=== PATIENT | male | born 1970 | race Two or more races ===

== ENCOUNTER 2019-08-15 09:33 | Emergency (ER) | payer OTHER ==
[~2019-08-15] VITALS: Ht 172.7 cm; Wt 120.2 kg
[2019-08-15] MEDS ORDERED: FORTAMET500 MG (10:05)
[2019-08-15] MEDS ORDERED: LOSARTAN-HCTZ1 EAC2 (10:05)
== END 2019-08-15 17:43 | disposition home or self-care (01) ==
LOC: ER 09:33 → EDSEX 09:45 → ER 09:45
DX: K57.90 Diverticulosis of intestine, part unspecified, without perforation or abscess without bleeding (principal); K80.20 Calculus of gallbladder without cholecystitis without obstruction; R10.84 Generalized abdominal pain

== ENCOUNTER 2023-07-03 04:25 | Emergency (ER) | payer OTHER ==
[~2023-07-03] VITALS: Ht 172.7 cm; Wt 104.3 kg
[~2023-07-03 04:25] MED LIST: FORTAMET500 MG; LOSARTAN-HCTZ1 EAC2
[2023-07-03] MEDS ORDERED: JANUMET 50-5001 EACH (04:41)
[2023-07-03] MEDS ORDERED: PROVENTIL HFA6.7 GM IH (09:54)
[2023-07-03] MEDS ORDERED: FLOVENT HFA12 GM IH (09:54)
== END 2023-07-03 10:28 | disposition home or self-care (01) ==
LOC: ER 04:25
PROVIDERS: General Practice
DX: J40 Bronchitis, not specified as acute or chronic (principal); Z20.822 Contact with and (suspected) exposure to COVID-19

== ENCOUNTER 2025-07-03 20:37 | Inpatient (IN) | payer OTHER ==
[~2025-07-03] VITALS: Ht 172.7 cm; Wt 104.3 kg
[~2025-07-03 20:37] MED LIST changes: +FLOVENT HFA12 GM IH; +JANUMET 50-5001 EACH; +PROVENTIL HFA6.7 GM IH
[2025-07-03] MEDS ORDERED: FAMOTIDINE/PF 20 MG/2 ML VIAL ONE (21:12)
[2025-07-03] MEDS ORDERED: ONDANSETRON HCL 2 MG/ML VIAL ONE (21:12)
[2025-07-03] MEDS ORDERED: ONDANSETRON HCL 2 MG/ML VIAL IV ONE (21:15)
[2025-07-03] MEDS ORDERED: FAMOtidine 10 MG/ML (4ML VIAL) IV ONE (21:15)
[2025-07-03] MEDS ORDERED: 0.9 % SODIUM CHLORIDE 1,000 ML IV ONE (21:15)
[2025-07-03] MEDS ORDERED: MORPHINE SULFATE 4 MG/ML VIAL IV ONE ×2 (21:15→23:30)
[2025-07-03 21:18] LABS: BASO % 0.4 % (0.1-1.2); EOS # 0.09 (0.04-0.54); EOS % 0.7 % (0.7-7.0); LYMPH # 1.96 (1.18-3.74); LYMPH % 14.6 % (19.3-53.1); MEAN PLATELET VOLUME 10.40 fl (9.4-12.4); MONO # 0.69 (0.24-0.82); MONO % 5.1 % (4.7-12.5); NEUT # 10.56 (1.56-6.13); NEUT % 78.7 % (34.0-71.1); RED CELL DISTRIBUTION WIDTH 11.8 % (11.6-14.4)
[2025-07-03 21:43] LABS: INR 1.08
[2025-07-03 21:49] LABS: ALT/SGPT 61.0 U/L (12-78); AST/SGOT 25.0 U/L (15-37); BILIRUBIN TOTAL 0.57 mg/dL (0.3-1.2); BUN CREA RATIO 22.0 (7.0-25.0); CREATININE SERUM 0.89 mg/dL (0.70-1.30); GFR 89.41; GLOBULINA 2.9 G/DL (2.4-3.5); OSMOLALITY SERUM 285.0 MOSM/KG (275-295)
[2025-07-03 21:51] LABS: GLUCOSE FASTING 258.0 mg/dL (65-100)
[2025-07-03] MEDS ORDERED: PROMETHAZINE HCL 50 MG/ML AMPUL IM ONE ×2 (23:30→23:35)
[2025-07-04] MEDS ORDERED: PIPERACILLIN/TAZOBACTAM SODIUM 3.375 GM VIAL IV ONE ×3 (00:30→21:14)
[2025-07-04 02:47] LABS: URINE APPEARANCE Clear; URINE BILIRRUBIN Negative (NEGATIVE); URINE BLOOD Negative; URINE COLOR Yellow; URINE KETONE 15 (NEGATIVE); URINE LEUKOCYTE Negative; URINE NITRATE Negative; URINE PROTEIN Negative (NEGATIVE); URINE UROBILINOGEN 0.2 E.U./dl
[2025-07-04 02:50] LABS: URINE EPITHELIAL CELLS 22.1 uL (0.0-38.8); URINE RBC 10.1 uL (0.0-20.8); URINE WBC 11.3 uL (0.0-23.2)
[2025-07-04] MEDS ORDERED: LIDOCAINE HCL VISCOUS 20MG/ML BLIST 15ML MM ONE (03:20)
[2025-07-04 03:27] LABS: URINE BACTERIA 1.1 uL (0.0-1933); URINE CAST 0.16 uL (0.0-1.40); URINE GLUCOSE 500 MG/DL (NEGATIVE); URINE MUCUS SCANT
[2025-07-04] MEDS ORDERED: ONDANSETRON HCL 2 MG/ML VIAL IV STA (04:31)
[2025-07-04] MEDS ORDERED: MORPHINE SULFATE 4 MG/ML VIAL IV STA (04:32)
[2025-07-04] MEDS ORDERED: ONDANSETRON HCL 2 MG/ML VIAL ONE (04:39)
[2025-07-04] MEDS ORDERED: MORPHINE SULFATE 2 MG/ML CARTRIDGE IV ONE (10:30)
[2025-07-04] MEDS ORDERED: ONDANSETRON HCL 8 MG in 0.9 % SODIUM CHLORIDE 50 ML IV STA (13:48)
[2025-07-04] MEDS ORDERED: ENALAPRILAT DIHYDRATE 1.25 MG/ML VIAL IV PRN (15:15)
[2025-07-04] MEDS ORDERED: 0.9 % SODIUM CHLORIDE 1,000 ML IV SCH (15:15)
[2025-07-04] MEDS ORDERED: DEXTROSE 50 % IN WATER 0.5 G/ML DISP.SYRIN IV PRN (15:45)
[2025-07-04] MEDS ORDERED: INSULIN LISPRO 1,000 UNIT/10 ML UNITS SUBCUTANEO PRN ×2 (15:45→18:15)
[2025-07-04] MEDS ORDERED: CEFAZOLIN SODIUM 2,000 MG in 0.9 % SODIUM CHLORIDE 100 ML IV ONE (17:30)
[2025-07-04] MEDS ORDERED: BUPIVACAINE HCL 30 ML VIAL IJ ONE (17:45)
[2025-07-04] MEDS ORDERED: PIPERACILLIN/TAZOBACTAM SODIUM 3.375 GM in DEXTROSE 5 % IN WATER 100 ML IV SCH (18:00)
[2025-07-04] MEDS ORDERED: DEXTROSE 50 % IN WATER 0.5 G/ML VIAL IV PRN (18:15)
[2025-07-04] MEDS ORDERED: SUGAMMADEX SODIUM 200 MG/2 ML VIAL IV ONE (18:30)
[2025-07-04] MEDS ORDERED: KETOROLAC TROMETHAMINE 30 MG VIAL IV SCH (19:22)
[2025-07-04] MEDS ORDERED: MORPHINE SULFATE 4 MG/ML CARTRIDGE IV PRN (19:30)
[2025-07-04] MEDS ORDERED: INSULIN GLARGINE,HUM.REC.ANLOG 1,000 UNITS/10 ML UNITS SUBCUTANEO SCH (21:00)
[2025-07-04] MEDS ORDERED: KETOROLAC TROMETHAMINE 30 MG VIAL ONE (21:16)
[2025-07-04 22:00] VITALS: BP 118/68; O2SAT 95
[2025-07-05 01:27] VITALS: BP 124/73; O2SAT 96
[2025-07-05 08:08] LABS: BASO % 0.7 % (0.1-1.2); EOS # 0.03 (0.04-0.54); EOS % 0.5 % (0.7-7.0); LYMPH # 0.73 (1.18-3.74); LYMPH % 12.5 % (19.3-53.1); MEAN PLATELET VOLUME 10.80 fl (9.4-12.4); MONO # 0.70 (0.24-0.82); MONO % 12.0 % (4.7-12.5); NEUT # 4.30 (1.56-6.13); NEUT % 74.0 % (34.0-71.1); RED CELL DISTRIBUTION WIDTH 12.1 % (11.6-14.4)
[2025-07-05 08:20] VITALS: BP 120/61; O2SAT 96
[2025-07-05 08:27] LABS: BUN CREA RATIO 23.0 (7.0-25.0); CREATININE SERUM 0.65 mg/dL (0.70-1.30); GFR 128.5; GLUCOSE FASTING 176.0 mg/dL (65-100); OSMOLALITY SERUM 290.0 MOSM/KG (275-295)
[2025-07-05] MEDS ORDERED: FAMOTIDINE/PF 20 MG/2 ML VIAL IV SCH (09:00)
[2025-07-05 16:00] VITALS: BP 122/76; O2SAT 95
[2025-07-06 00:19] VITALS: BP 105/54; O2SAT 94
[2025-07-06 08:47] VITALS: BP 117/75; O2SAT 95
[2025-07-06 16:00] VITALS: BP 120/72; O2SAT 96
[2025-07-07 07:00] LABS: BUN CREA RATIO 24.0 (7.0-25.0); CREATININE SERUM 0.51 mg/dL (0.70-1.30); GFR 170.01; GLUCOSE FASTING 124.0 mg/dL (65-100); OSMOLALITY SERUM 286.0 MOSM/KG (275-295)
[2025-07-07 08:38] VITALS: BP 110/69; O2SAT 95
== END 2025-07-07 13:48 | disposition home or self-care (01) | DRG 355 ==
LOC: ER 20:37 → SURH 07-04 15:36 → SEC-K 07-04 15:36 → SURH 07-04 19:45
PROVIDERS: General Practice; Student in an Organized Health Care Education/Training Program; ADMIT Student in an Organized Health Care Education/Training Program; ATTEND Student in an Organized Health Care Education/Training Program
PROC: BW21YZZ Computerized Tomography (CT Scan) of Abdomen and Pelvis using Other Contrast (ICD-10-PCS; 2025-07-03)
PROC: 0WQF4ZZ Repair Abdominal Wall, Percutaneous Endoscopic Approach (ICD-10-PCS; principal; 2025-07-04 17:45)
DX: K43.0 Incisional hernia with obstruction, without gangrene (principal); K42.0 Umbilical hernia with obstruction, without gangrene

== ENCOUNTER 2025-07-08 19:58 | Inpatient (IN) | payer OTHER ==
[~2025-07-08] VITALS: Ht 264.2 cm; Wt 106.1 kg
--- NOTE | 2025-07-08 20:12 | NUR ---
PACIENTE ALERTA Y ORIENTADO X3. REFIERE LE SIDO OPERADO POR DRA. GARCIA FIGUERA HACE UNOS SCHRADER POR PLACIDO HERNIA UMBILICAL, EL MISMO FUE DADO DE ASLAS IJEOMA EL MANDO DE DARRELL DE INSTITUCION. REFIERE COMENZAR CON VOMITOS X10 DESDE EL MANDO DE HOY. SE HERBERT S/V Y SE UBICA.
[2025-07-08] MEDS ORDERED: PROMETHAZINE HCL 25 MG/ML AMPUL IM STA (20:55)
[2025-07-08] MEDS ORDERED: METOCLOPRAMIDE HCL 5 MG/ML VIAL IM STA (20:55)
[2025-07-08] MEDS ORDERED: ONDANSETRON HCL 2 MG/ML VIAL IV STA (20:56)
[2025-07-08] MEDS ORDERED: 0.9 % SODIUM CHLORIDE 1,000 ML IV STA (20:56)
[2025-07-08] MEDS ORDERED: FAMOtidine 10 MG/ML (4ML VIAL) IV PUSH STA (20:57)
[2025-07-08] MEDS ORDERED: METOCLOPRAMIDE HCL 5 MG/ML VIAL ONE (21:05)
[2025-07-08] MEDS ORDERED: ONDANSETRON HCL 2 MG/ML VIAL ONE (21:05)
[2025-07-08] MEDS ORDERED: PROMETHAZINE HCL 50 MG/ML AMPUL IM ONE (21:05)
[2025-07-08] MEDS ORDERED: FAMOTIDINE/PF 20 MG/2 ML VIAL ONE (21:06)
--- NOTE | 2025-07-08 21:18 | NUR ---
SE ORIENTA PTE SOBRE TX MEDICO EL CUAL REFIERE ENTENDER.SE LE EXTRAEN MUESTRAS BAJO MEDIDAS ASEPTICAS,SE CANALIZA Y SE ADMINISTRA MEDICAMENTOS MARCELINA ORDEN MEDICA,SE NOTIFICA CT PENDIENTE.
[2025-07-08 21:21] LABS: BASO % 0.4 % (0.1-1.2); EOS # 0.07 (0.04-0.54); EOS % 0.7 % (0.7-7.0); LYMPH # 1.16 (1.18-3.74); LYMPH % 11.9 % (19.3-53.1); MEAN PLATELET VOLUME 9.50 fl (9.4-12.4); MONO # 0.85 (0.24-0.82); MONO % 8.7 % (4.7-12.5); NEUT # 7.61 (1.56-6.13); NEUT % 77.8 % (34.0-71.1); RED CELL DISTRIBUTION WIDTH 11.7 % (11.6-14.4)
[2025-07-08 21:43] LABS: INR 1.13
[2025-07-08 22:01] LABS: ALT/SGPT 45.0 U/L (12-78); AST/SGOT 47.0 U/L (15-37); BILIRUBIN TOTAL 0.94 mg/dL (0.3-1.2); BUN CREA RATIO 18.0 (7.0-25.0); CREATININE SERUM 0.73 mg/dL (0.70-1.30); GFR 112.39; GLOBULINA 3.1 G/DL (2.4-3.5); GLUCOSE FASTING 169.0 mg/dL (65-100); OSMOLALITY SERUM 283.0 MOSM/KG (275-295)
--- NOTE | 2025-07-09 07:21 | NUR ---
PTE ALERTA Y ORIENTADO X3 EN CAMA CON BARANDAS ELEVADAS. SE MANTIENE BAJO OBSERVACION POR CAMBIOS SIGNIFICATIVOS
[2025-07-09] MEDS ORDERED: ENALAPRILAT DIHYDRATE 1.25 MG/ML VIAL IV PRN (10:45)
[2025-07-09] MEDS ORDERED: MORPHINE SULFATE 2 MG/ML SYRINGE IV PRN (10:45)
[2025-07-09] MEDS ORDERED: ACETAMINOPHEN 325 MG TABLET PO PRN (10:45)
[2025-07-09] MEDS ORDERED: FAMOtidine 10 MG/ML (4ML VIAL) IV ONE (10:45)
[2025-07-09] MEDS ORDERED: 0.9 % SODIUM CHLORIDE 1,000 ML IV SCH ×2 (10:45→16:15)
[2025-07-09] MEDS ORDERED: 0.9 % SODIUM CHLORIDE 1,000 ML IV ONE (10:45)
[2025-07-09] MEDS ORDERED: CIPROFLOXACIN IN 5 % DEXTROSE 400 MG/200 ML PIGGYBAG IV ONE (10:45)
[2025-07-09] MEDS ORDERED: PIPERACILLIN/TAZOBACTAM SODIUM 3.375 GM VIAL IV ONE (10:45)
[2025-07-09] MEDS ORDERED: CEFTRIAXONE SODIUM 1,000 MG VIAL IV SCH (10:46)
[2025-07-09] MEDS ORDERED: METRONIDAZOLE/SODIUM CHLORIDE 500 MG/100 ML PIGGYBACK IV SCH ×2 (11:00→17:00)
[2025-07-09] MEDS ORDERED: CEFTRIAXONE SODIUM 1,000 MG VIAL ONE (11:28)
[2025-07-09] MEDS ORDERED: FAMOTIDINE/PF 20 MG/2 ML VIAL ONE ×2 (11:29→15:44)
[2025-07-09] MEDS ORDERED: ONDANSETRON HCL 2 MG/ML VIAL IV ONE (13:45)
[2025-07-09] MEDS ORDERED: ONDANSETRON HCL 2 MG/ML VIAL ONE (14:11)
[2025-07-09] MEDS ORDERED: PROMETHAZINE HCL 50 MG/ML AMPUL IM ONE ×2 (15:30→15:43)
[2025-07-09] MEDS ORDERED: CEFTRIAXONE SODIUM 2,000 MG in 0.9 % SODIUM CHLORIDE 100 ML IV SCH (16:06)
[2025-07-09] MEDS ORDERED: ONDANSETRON HCL 4 MG in 0.9 % SODIUM CHLORIDE 50 ML IV PRN (16:15)
[2025-07-09] MEDS ORDERED: MORPHINE SULFATE 4 MG/ML CARTRIDGE IV PRN (16:15)
[2025-07-09] MEDS ORDERED: CEFTRIAXONE SODIUM 2,000 MG VIAL ONE (16:31)
[2025-07-09] MEDS ORDERED: METRONIDAZOLE/SODIUM CHLORIDE 500 MG/100 ML PIGGYBACK IV ONE (16:31)
[2025-07-09] MEDS ORDERED: FAMOTIDINE/PF 20 MG/2 ML VIAL IV SCH (17:00)
[2025-07-09 22:06] VITALS: BP 138/76
[2025-07-10 03:43] VITALS: BP 117/74; O2SAT 95
[2025-07-10] MEDS ORDERED: PANTOPRAZOLE SODIUM 40 MG/VIAL VIAL IV SCH (06:27)
[2025-07-10] MEDS ORDERED: ONDANSETRON HCL 2 MG/ML VIAL IV PRN (06:30)
[2025-07-10] MEDS ORDERED: DIATRIZOATE MEGLUMINE, SODIUM 30 ML BOTTLE PO NR (08:00)
[2025-07-10 08:46] VITALS: BP 135/80; O2SAT 94
[2025-07-10] MEDS ORDERED: ENOXAPARIN SODIUM 40 MG/0.4 ML SYRINGE SUBCUTANEO SCH (09:00)
[2025-07-10] MEDS ORDERED: PIPERACILLIN/TAZOBACTAM SODIUM 3.375 GM VIAL IV SCH (14:00)
[2025-07-10 14:21] LABS: BUN CREA RATIO 22.0 (7.0-25.0); CREATININE SERUM 0.72 mg/dL (0.70-1.30); GFR 114.19; GLUCOSE FASTING 130.0 mg/dL (65-100); OSMOLALITY SERUM 288.0 MOSM/KG (275-295)
[2025-07-10 17:03] VITALS: BP 134/78; O2SAT 94
[2025-07-11 09:17] VITALS: BP 130/80; O2SAT 99
== END 2025-07-11 10:23 | disposition home or self-care (01) | DRG 390 ==
LOC: ER 19:58 → MEDI 07-09 16:34
PROVIDERS: Student in an Organized Health Care Education/Training Program; ADMIT Student in an Organized Health Care Education/Training Program; ATTEND Student in an Organized Health Care Education/Training Program
PROC: BW21ZZZ Computerized Tomography (CT Scan) of Abdomen and Pelvis (ICD-10-PCS; principal; 2025-07-08)
PROC: BW21YZZ Computerized Tomography (CT Scan) of Abdomen and Pelvis using Other Contrast (ICD-10-PCS; 2025-07-09)
PROC: BW24YZZ Computerized Tomography (CT Scan) of Chest and Abdomen using Other Contrast (ICD-10-PCS; 2025-07-09)
PROC: BW21ZZZ Computerized Tomography (CT Scan) of Abdomen and Pelvis (ICD-10-PCS; 2025-07-10)
DX: K56.609 Unspecified intestinal obstruction, unspecified as to partial versus complete obstruction (principal); K52.9 Noninfective gastroenteritis and colitis, unspecified; I10 Essential (primary) hypertension; E11.9 Type 2 diabetes mellitus without complications; Z79.4 Long term (current) use of insulin; R63.0 Anorexia